=== PATIENT | female | born 1940 ===

== ENCOUNTER 2018-08-15 07:24 | Outpatient (CLI) | payer OTHER | END 2018-08-15 07:28 | disposition home or self-care (01) | LOC: SONOGRAMA 07:24 | DX: E04.1 Nontoxic single thyroid nodule (principal) ==

== ENCOUNTER 2024-08-09 07:44 | Outpatient (CLI) | payer OTHER | END 2024-08-09 07:47 | disposition home or self-care (01) | LOC: SONOGRAMA 07:44 | PROVIDERS: ATTEND Pathology Anatomic Pathology & Clinical Pathology | DX: D34 Benign neoplasm of thyroid gland (principal); E07.89 Other specified disorders of thyroid; E04.2 Nontoxic multinodular goiter ==